=== PATIENT | male | born 2000 | race Caucasian/White ===

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

== ENCOUNTER 2018-10-11 03:16 | Emergency (ER) | payer MEDICAID ==
[~2018-10-11] VITALS: Ht 172.7 cm; Wt 72.7 kg
[2018-10-11 08:00] VITALS: BP 102/58
== END 2018-10-11 08:57 | disposition home or self-care (01) ==
LOC: ER 03:16 → EDUNIT# 03:16 → ER 08:57
DX: S00.83XA Contusion of other part of head, initial encounter (principal); F10.129 Alcohol abuse with intoxication, unspecified; Y08.89XA Assault by other specified means, initial encounter; Y93.89 Activity, other specified; Y92.89 Other specified places as the place of occurrence of the external cause; Y99.8 Other external cause status; Y90.0 Blood alcohol level of less than 20 mg/100 ml
CPT/HCPCS: 70450; 99284; Z7610

== ENCOUNTER 2019-02-22 19:45 | Emergency (ER) | payer SELFPAY ==
[~2019-02-22] VITALS: Ht 167.6 cm; Wt 60.0 kg
[2019-02-22 20:11] VITALS: BP 108/60
== END 2019-02-23 01:00 | disposition left against medical advice (07) ==
LOC: ER 19:45
DX: Z53.21 Procedure and treatment not carried out due to patient leaving prior to being seen by health care provider (principal); F17.200 Nicotine dependence, unspecified, uncomplicated

== ENCOUNTER 2020-09-15 18:11 | Emergency (ER) | payer MEDICAID ==
[~2020-09-15] VITALS: Ht 170.2 cm; Wt 57.0 kg
[2020-09-15] MEDS ORDERED: SODIUM CHLORIDE 0.9% 1,000 ML IV ONE (18:45)
[2020-09-15] MEDS ORDERED: TETANUS, DIPHTHERIA, PERTUSSIS VAC/PF 0.5ML (>7YR OLD) IM ONE (18:45)
[2020-09-15 19:04] LABS: BASOPHILS % 0.4 % (0.0-2.0); EOSINOPHILS % 0.7 % (0.0-5.0); HEMATOCRIT. 40.7 % (42.0-52.0); HEMOGLOBIN. 13.7 g/dL (14.0-18.0); LYMPHOCYTES % 22.6 % (20.0-50.0); MEAN CORPUSCULAR HEMOGLOBIN 30.3 pg (28.0-32.0); MEAN PLATELET VOLUME 7.5 fl (7.4-10.4); MONOCYTES % 10.5 % (2.0-8.0); NEUTROPHILS % 65.8 % (40.0-76.0); PLATELET 316 x1000/uL (130-400); RED BLOOD CELL COUNT 4.52 mill/uL (4.7-6.1); RED CELL DISTRIBUTION WIDTH 13.4 % (11.6-14.6)
[2020-09-15 19:12] LABS: CHLORIDE 106 mEq/L (98-107)
[2020-09-15 19:16] LABS: CLARITY URINE CLEAR (CLEAR); COLOR URINE YELLOW (YELLOW); KETONES URINE NEGATIVE (NEGATIVE); LEUKOCYTE ESTERASE URINE NEGATIVE (NEGATIVE); NITRITE URINE NEGATIVE (NEGATIVE); OCCULT BLOOD URINE NEGATIVE (NEGATIVE); PROTEIN URINE NEGATIVE (NEGATIVE)
[2020-09-15 19:17] LABS: ETHANOL BLOOD < 10 mg/dL
[2020-09-15 19:26] LABS: *BENZODIAZEPINES SCREEN URINE NEGATIVE (NEGATIVE); *COCAINE SCREEN URINE NEGATIVE (NEGATIVE)
[2020-09-15 19:27] LABS: *AMPHETAMINES SCREEN URINE PRESUMTIVE POSITIVE (NEGATIVE); *BARBITURATES SCREEN URINE NEGATIVE (NEGATIVE); CANNABINOID URINE SCREEN PRESUMTIVE POSITIVE (NEGATIVE); METHADONE URINE SCREEN NEGATIVE (NEGATIVE); OPIATES URINE SCREEN NEGATIVE (NEGATIVE); PHENCYCLIDINE URINE SCREEN NEGATIVE (NEGATIVE)
[2020-09-15 19:30] VITALS: BP 116/69
== END 2020-09-15 20:30 | disposition home or self-care (01) ==
LOC: ER 18:11
DX: R55 Syncope and collapse (principal); F12.10 Cannabis abuse, uncomplicated; Z86.59 Personal history of other mental and behavioral disorders
CPT/HCPCS: 36415; 70450; 71045; 80053; 80305; 80320; 81003; 84484; 85025; 90471; 90715; 93005; 96360; 99285; J7030; Z7610; G0480